=== PATIENT | female | born 1980 | race American Indian/Alaskan Native ===

== ENCOUNTER 2016-10-20 20:03 | Emergency (ER) | payer OTHER, MEDICARE ==
[2016-10-20 20:44] VITALS: BP 112/69
--- NOTE | 2016-10-20 22:17 | Ultrasound Report ---
FINAL REPORT EXAM: US ABDOMEN LIMITED HISTORY: RUQ pain, post , suspect cholecystitis TECHNIQUE: Ultrasound abdomen PRIORS: None. FINDINGS: There is shadowing echogenic material layering within the lumen of the gallbladder likely reflecting small stones or sludge. Gallbladder wall is not thickened. No pericholecystic fluid seen Common bile duct is dilated measuring 0.84 centimeters There is some prominence of proximal intrahepatic ducts. IMPRESSION: Sludge or small stones layering within the lumen of the gallbladder Dilated common bile duct. Suspect choledocholithiasis. If continued clinical concern MRCP would be helpful for further evaluation
[2016-10-21 00:51] LABS: Basophils % (Auto) 0.1 % (0.0-1.8); Eosinophils % (Auto) 0.1 % (0.0-4.3); Hematocrit 44.2 % (30.3-42.9); Hemoglobin 14.6 gm/dl (10.1-14.3); Mean Corpuscular HGB Conc 33 % (30-34); Mean Corpuscular Hemoglobin 28 pg (28-32); Mean Corpuscular Volume 86 fl (79-97); Platelet Count 351 K/mm3 (140-440); Red Blood Count 5.16 M/mm3 (3.65-5.03); Red Cell Distribution Width 14.2 % (13.2-15.2); White Blood Count 12.5 K/mm3 (4.5-11.0)
[2016-10-21 01:09] LABS: Alanine Aminotransferase 62 units/L (7-56); Albumin 4.3 g/dL (3.9-5); Albumin/Globulin Ratio 1.3 %; Alkaline Phosphatase 221 units/L (35-129); Bilirubin,Total 1.1 mg/dL (0.1-1.2); Blood Urea Nitrogen 14 mg/dL (7-17); Calcium 9.8 mg/dL (8.4-10.2); Carbon Dioxide 21 mmol/L (22-30); Chloride 97.6 mmol/L (98-107); Glucose 114 mg/dL (65-100); Lipase 55 units/L (13-60); Sodium 136 mmol/L (137-145); Total Protein 7.6 g/dL (6.3-8.2)
[2016-10-21 01:15] LABS: Anion Gap 21 mmol/L
--- NOTE | 2016-10-22 14:43 | ED Elopement Review ---
ED Pt Elopement review - Results review Lab results: Laboratory Tests 10/20/16 10/20/16 23:48 23:48 WBC 12.5 H RBC 5.16 H Hgb 14.6 H Hct 44.2 H MCV 86 MCH 28 MCHC 33 RDW 14.2 Plt Count 351 Lymph % (Auto) 9.5 L [place] % (Auto) 3.2 Eos % (Auto) 0.1 Baso % (Auto) 0.1 Lymph # 1.2 [place] # 0.4 Eos # 0.0 Baso # 0.0 Seg Neutrophils % 87.1 H Seg Neutrophils # 10.9 H Sodium 136 L Potassium 4.0 Chloride 97.6 L Carbon Dioxide 21 L Anion Gap 21 BUN 14 Creatinine 0.5 L Estimated GFR > 60 BUN/Creatinine Ratio 28.00 Glucose 114 H Calcium 9.8 Total Bilirubin 1.1 AST 97 H ALT 62 H Alkaline Phosphatase 221 H Total Protein 7.6 Albumin 4.3 Albumin/Globulin Ratio 1.3 Lipase 55 - Call Back decision Pt Call Back Decision: Pt to F/U with PMD (for workup for possible gallstones.)
== END 2016-10-21 01:40 | disposition left against medical advice (07) ==
LOC: ED 20:03
DX: R10.10 Upper abdominal pain, unspecified (principal); R11.2 Nausea with vomiting, unspecified; Z53.21 Procedure and treatment not carried out due to patient leaving prior to being seen by health care provider
CPT/HCPCS: 36415; 76705; 80053; 83690; 85025

== ENCOUNTER 2019-08-02 10:28 | Emergency (ER) | payer OTHER, MEDICARE ==
[2019-08-02 10:54] VITALS: BP 158/98
[2019-08-02] MEDS ORDERED: KETOROLAC 30 MG/1 ML INJ IM ONE (10:59)
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
--- NOTE | 2019-08-02 12:34 | XRay Report ---
Thoracic spine 3 views Indication: Trauma Findings: There is no fracture, subluxation, or other acute radiographic abnormality of the thoracic spine. Signer Name: Raphael Norris MD Signed: 08/02/2019 12:30 PM Workstation Name: [id number]
--- NOTE | 2019-08-02 12:34 | XRay Report ---
CLINICAL DATA: Trauma TECHNICAL DATA: AP and lateral views lumbar spine. FINDINGS: The bone mineralization is normal. Vertebral body heights are normal. Intervertebral disc spaces are well maintained. Pedicles and spinous processes are normal in alignment. SI joints and sacrum are nor mal. IMPRESSION: Normal examination lumbar spine. Signer Name: James Chao MD Signed: 08/02/2019 12:29 PM Workstation Name: [id number]
--- NOTE | 2019-08-02 12:34 | XRay Report ---
CHEST 1 VIEW INDICATION: Trauma. COMPARISON: none FINDINGS: SUPPORT DEVICES: None. HEART / MEDIASTINUM: No significant abnormality. LUNGS / PLEURA: No significant pulmonary or pleural abnormality. No pneumothorax. ADDITIONAL FINDINGS: IMPRESSION: 1. No acute findings. Signer Name: James Chao MD Signed: 08/02/2019 12:29 PM Workstation Name: [id number]
--- NOTE | 2019-08-02 12:35 | XRay Report ---
HISTORY:Trauma COMPARISON: None. TECHNIQUE: AP lateral and obliques views were obtained FINDINGS: Bones: No fracture or dislocation. Joint spaces: Maintained. Soft tissues: No significant abnormality. Additional findings: None. IMPRESSION: 1. No significant abnormality. Signer Name: James Chao MD Signed: 08/02/2019 12:30 PM Workstation Name: [id number]
--- NOTE | 2019-08-02 12:53 | XRay Report ---
CERVICAL SPINE, 4 VIEWS INDICATION: Trauma. COMPARISON: None. IMPRESSION: Normal alignment. Mild to moderate discogenic disc disease and facet arthropathy are id entified at C5-6 and C6-7. No acute osseous or soft tissue abnormality. Signer Name: Garfield Garcia Jr, MD Signed: 08/02/2019 12:49 PM Workstation Name: [id number]
== END 2019-08-02 14:00 | disposition home or self-care (01) ==
LOC: ED 10:28
DX: M79.9 Soft tissue disorder, unspecified (principal); M79.81 Nontraumatic hematoma of soft tissue; H40.9 Unspecified glaucoma; Z90.49 Acquired absence of other specified parts of digestive tract; Z98.890 Other specified postprocedural states; Z79.4 Long term (current) use of insulin; Z79.899 Other long term (current) drug therapy; Z88.8 Allergy status to other drugs, medicaments and biological substances; V49.59XA Passenger injured in collision with other motor vehicles in traffic accident, initial encounter; Y93.89 Activity, other specified; Y92.89 Other specified places as the place of occurrence of the external cause; Y99.8 Other external cause status
CPT/HCPCS: 71045; 72040; 72070; 72100; 73060; 73502; 73562; 96372; 99284; J1885